=== PATIENT | female | born 1995 | race Caucasian/White ===

== ENCOUNTER 2017-11-08 17:15 | Emergency (ER) | payer OTHER ==
[~2017-11-08] VITALS: Ht 165.1 cm; Wt 54.3 kg
[2017-11-08 17:21] VITALS: BP 115/60
[2017-11-08] MEDS ORDERED: DEXAMETHASONE 4 MG TABLET ONE (17:54)
[2017-11-08] MEDS ORDERED: DEXAMETHASONE 4 MG TABLET PO ONE (18:00)
== END 2017-11-08 18:20 | disposition home or self-care (01) ==
LOC: ED 18:12
DX: J02.0 Streptococcal pharyngitis (principal)
CPT/HCPCS: 99283